=== PATIENT | male | born 1985 | race American Indian/Alaskan Native ===

== ENCOUNTER 2019-09-11 07:00 | Day surgery (SDC) | payer OTHER ==
[2019-09-11] MEDS ORDERED: LACTATED RINGERS 1,000 ML ONE (08:05)
[2019-09-11] MEDS ORDERED: BACTERIOSTATIC SODIUM CHLORIDE 0.9% 30 ML VIAL INFILTRATI ONE (08:05)
[2019-09-11] MEDS ORDERED: ONDANSETRON 4 MG/2 ML INJ IV PRN (08:22)
--- NOTE | 2019-09-11 08:25 | Anesthesia Day of Surgery ---
Anesthesia Day of Surgery - Day of Surgery Patient Examined: Yes Patient H&P Reviewed: Yes Patient is NPO: Yes
--- NOTE | 2019-09-11 08:28 | Anesthesia Consultation ---
Anesthesia Consult and Med Hx Date of service: 09/11/19 - Airway Anesthetic Teeth Evaluation: Good ROM Head & Neck: Adequate Mental/Hyoid Distance: Adequate Mallampati Class: Class II Intubation Access Assessment: Good - Pre-Operative Health Status ASA Pre-Surgery Classification: ASA2 Proposed Anesthetic Plan: General - Pulmonary Hx Smoking: No Hx Sleep Apnea: No (PIPPA PRE SCREEN LOW RISK.) - Cardiovascular System Hx Hypertension: No - Central Nervous System Hx Neuromuscular Disorder: Yes (Migraines) Hx Back Pain: Yes - Gastrointestinal Hx Gastroesophageal Reflux Disease: Yes - Other Systems Hx Cancer: No
[2019-09-11] MEDS ORDERED: LACTATED RINGERS 1,000 ML IV SCH (09:00)
[2019-09-11] MEDS ORDERED: LIDOCAINE MPF (2%) 20 MG/1 ML VIAL 5 ML ONE (10:01)
[2019-09-11] MEDS ORDERED: fentaNYL 100 MCG/2 ML INJ ONE (10:01)
[2019-09-11] MEDS ORDERED: PROPOFOL 200 MG/20 ML VIAL IV ONE (10:02)
[2019-09-11] MEDS ORDERED: dexAMETHasone 20 MG/5 ML VIAL ONE (10:32)
[2019-09-11] MEDS ORDERED: ONDANSETRON 4 MG/2 ML INJ ONE (10:32)
[2019-09-11] MEDS ORDERED: WATER FOR IRRIG STERILE 1,500 ML BOTTLE IR ONE (10:34)
[2019-09-11] MEDS ORDERED: WATER FOR IRRIG STERILE 2000 ML IR ONE (10:35)
--- NOTE | 2019-09-11 10:40 | Short Stay Summary ---
Short Stay Documentation Date of service: 09/11/19 Narrative H&P: 33 yr old male with pelvic pain mother hx crohn's disease + pelvic pain CTAP - thick bladder small kidney stone - History Past Medical History: No medical history Past Surgical History: Other (colonoscopy (Dr. Joy)) Social history: no significant social history, single - Allergies and Medications Current Medications: Allergies amoxicillin Allergy (Verified 09/06/19 11:42) Hives Penicillins Allergy (Verified 09/06/19 11:42) Hives Home Medications Medication Instructions Recorded Confirmed Last Taken Type Pantoprazole [Protonix] 40 mg PO QDAY 09/06/19 09/06/19 09/10/19 14:00 History Topiramate [Topamax] 50 mg PO PRN PRN 09/06/19 09/06/19 09/10/19 14:00 History Active Medications Fentanyl (Sublimaze) 50 mcg IV Q5MIN PRN PRN Reason: Pain , Severe (7-10) Stop: 09/11/19 20:00 Lactated Ringer's (Lactated Ringers) 1,000 mls @ 125 mls/hr IV DIRECT GIANA Last Admin: 09/11/19 08:25 Dose: 125 mls/hr Documented by: Levofloxacin/Dextrose (Levaquin 250mg/50ml) 250 mg in 50 mls @ 50 mls/hr IV Q24HR GIANA; Protocol Ondansetron HCl (Zofran) 4 mg IV ONCE PRN PRN Reason: Nausea And Vomiting Stop: 09/11/19 13:00 - Physical exam General appearance: no acute distress, well-nourished HEENT: Atraumatic, PERRLA Lungs: Clear to auscultation Heart: Regular rate, No murmurs Extremities: no ischemia, No edema Neurological: Normal gait - Brief post op/procedure progress note Date of procedure: 09/11/19 Pre-op diagnosis: bladder mass Post-op diagnosis: other (no bladder mass) Procedure: cysto, rpg, hydrodistention (800cc) Anesthesia: GETA Surgeon: HERBERT VILLASENOR Condition: stable - Hospital course Hospital course: Levaquin & norco on chart - Disposition Condition at discharge: Stable Disposition: DC-01 TO HOME OR SELFCARE Short Stay Discharge Plan Follow up with: CORTEZ TEJADA MD [Primary Care Provider] - 7 Days
--- NOTE | 2019-09-11 10:59 | Operative Report ---
PREOPERATIVE DIAGNOSIS: Bladder mass. POSTOPERATIVE DIAGNOSIS: Bladder mass (no bladder mass). PROCEDURE: Cystoscopy, bilateral retrograde pyelograms, hydrodistention (800 mL bladder capacity). SURGEON: Oz Jacobson MD ANESTHESIA: General. ESTIMATED BLOOD LOSS: Minimal. FLUIDS: Crystalloid. COMPLICATIONS: No complications. INDICATIONS: This patient is a 33-year-old gentleman referred by Dr. Alexander Menjivar for evaluation of pelvic pain. CT of abdomen and pelvis was obtained by Dr. Hermes Joy, was found to have a 4 mm right kidney stone and thickened bladder wall. He has had colonoscopies x 3 that were all negative. Discussed irritants to the urinary tract caffeine, alcohol, spicy foods. He presents now for endoscopic evaluation. DESCRIPTION OF PROCEDURE: The patient was taken to the operative suite, placed in a supine position. After adequate general anesthesia, placed in a dorsal lithotomy position, prepped and draped in a sterile fashion. Pancystourethroscopy was performed with a 22-Italian Storz cystoscope, no urethral abnormalities. His prostate was nonobstructing. His bladder, both ureteral orifices in normal position. No tumors or stones were noted. Bilateral retrograde pyelograms were obtained with an 8-Italian Berenice catheter and 8 mL of contrast. No filling defects or obstruction. Next, hydrodistention was performed. Maximum bladder capacity under anesthesia was 800 mL. Reevaluation of his bladder displayed some mild diffuse trabeculations in 4 quadrants suggestive of interstitial cystitis, also asked that he reduce his irritants which may also be helpful. The patient tolerated the procedure well and was extubated and taken to recovery room. Rectal exam was benign. He will go home on Levaquin and [place] and follow up in the office. JOB# [id number] [facility]/[place]
[2019-09-11] MEDS ORDERED: MEPERIDINE 25 MG/1 ML INJ ONE (11:04)
[2019-09-11] MEDS: fentaNYL 100 MCG/2 ML INJ IV PRN ×2 (11:05→11:21)
[2019-09-11] MEDS ORDERED: MEPERIDINE 25 MG/1 ML INJ IV PRN (11:30)
[2019-09-11 11:51] VITALS: BP 113/75
--- NOTE | 2019-09-11 12:20 | Fluoroscopy Report ---
INTRAOPERATIVE FLUOROSCOPY: RETROGRADE UROGRAPHY INDICATION: BLADDER MASS. TECHNIQUE: Intraoperative spot images were obtained during the procedure. FINDINGS: Bilateral retrograde urography appears unremarkable on the limited submitted imaging. Please see the procedure report for further details. Fluoroscopy Time: 8 seconds. Fluoroscopy Images: 4. Signer Name: Lior Lal MD Signed: 09/11/2019 12:16 PM Workstation Name: [id number]
--- NOTE | 2019-09-11 18:09 | Post Anesthesia Evaluation ---
- Post Anesthesia Evaluation Patient Participated: Yes Airway Patent: Yes Stable Respiratory Function: Yes Nausea/Vomiting: No Temp > 96.8F: Yes Pain Manageable: Yes Adequeate Hydration: Yes Anesthesia Complications: No Block Receding Appropriately: Not Applicable Patient on Ventilator: No
== END 2019-09-11 12:10 | disposition home or self-care (01) ==
LOC: OR 07:00
PROVIDERS: ATTEND Urology
DX: N32.89 Other specified disorders of bladder (principal); G43.909 Migraine, unspecified, not intractable, without status migrainosus; K21.9 Gastro-esophageal reflux disease without esophagitis; Z98.890 Other specified postprocedural states; Z79.899 Other long term (current) drug therapy; Z88.0 Allergy status to penicillin; Z88.6 Allergy status to analgesic agent
CPT/HCPCS: 52000; 74420; A4217; C1758; J1100; J1956; J2175; J2405; J2704; J3010; J7120; Q9967